=== PATIENT | female | born 1990 | race African-American/Black ===

== ENCOUNTER 2021-09-17 14:22 | Inpatient (IN) ==
[2021-09-17] MEDS ORDERED: miSOPROStoL 200 MCG TABLET RECTAL PRN (15:07)
[2021-09-17] MEDS ORDERED: METHYLERGONOVINE 0.2 MG/1 ML AMP IM PRN (15:07)
[2021-09-17] MEDS ORDERED: TRANEXAMIC ACID 1,000 MG in SODIUM CHLORIDE 0.9% 100 ML IV PRN (15:07)
[2021-09-17] MEDS ORDERED: CARBOPROST TROMETHAMINE 250 MCG/ML AMP IM PRN (15:07)
[2021-09-17] MEDS ORDERED: OXYTOCIN/LR 20 UNIT/1,000 ML BAG IV ONE ×3 (15:07→21:52)
[2021-09-17] MEDS ORDERED: LACTATED RINGERS 1,000 ML IV ONE (15:34)
[2021-09-17 15:35] LABS: Basophils % 0.3 % (0.0-0.8); Eosinophils # 0.1 10*3/uL (0.0-0.87); Eosinophils % 0.8 % (0.00-10.9); Hematocrit 32.4 VOL% (35.7-47.0); Hemoglobin 10.2 GM/DL (12.0-16.0); Immature Granulocytes % 0.4 %; Immature Granulocytes Absolute 0.03 #; Lymphocytes % 25.2 % (21.3-54.2); Mean Corpuscular HGB Conc 31.5 GM/DL (32-36); Mean Corpuscular Volume 79.4 FL (87-102); Mean Platelet Volume 10.1 FL (9.6-12.0); Monocytes % 10.1 % (1.7-12.7); Neutrophils % 63.2 % (38.7-73.9); Platelet Count 257 T/CUMM (130-400); Red Blood Count 4.08 MC/CUMM (3.8-5.5); Red Cell Distribution Width 15.6 % (9.3-17.3); White Blood Count 7.8 T/CUMM (4-12)
[2021-09-17] MEDS: LACTATED RINGERS 1,000 ML IV SCH ×2 (15:36→18:11)
[2021-09-17] MEDS ORDERED: SODIUM CHLORIDE 0.9% 0 ML IV ONE (15:38)
[2021-09-17] MEDS ORDERED: TRANEXAMIC ACID 1,000 MG/10 ML VIAL ONE (15:38)
[2021-09-17] MEDS ORDERED: miSOPROStoL 200 MCG TABLET ONE (15:38)
[2021-09-17] MEDS ORDERED: METHYLERGONOVINE 0.2 MG/1 ML AMP ONE (15:39)
[2021-09-17] MEDS ORDERED: CARBOPROST TROMETHAMINE 250 MCG/ML AMP IM ONE (15:39)
[2021-09-17 15:58] LABS: Alanine Aminotransferase 20 U/L (13-56); Albumin 2.4 G/DL (3.4-5.0); Alkaline Phosphatase 133 U/L (45-117); Aspartate Amino Transferase 14 U/L (0-37); Bilirubin,Total < 0.39 MG/DL (0.20-1.00); Blood Urea Nitrogen 4 MG/DL (7-18); Calcium 8.8 MG/DL (8.5-10.1); Carbon Dioxide 20 MMOL/L (21-32); Estimated Glom Filtration Rate 208 ML/MIN; Glucose 74 MG/DL (74-106); Osmolality,Calculated 270.7 MOS/KG (273-304); Potassium 3.8 MMOL/L (3.5-5.1); Sodium 138 MMOL/L (136-145); Total Protein 6.9 G/DL (6.4-8.2)
[2021-09-17] MEDS ORDERED: ceFAZolin 3,000 MG in SYRINGE 1 EACH IV ONE (16:00)
[2021-09-17] MEDS ORDERED: CITRIC ACID/SODIUM CITRATE 30 ML UDCUP PO ONE (16:00)
[2021-09-17] MEDS ORDERED: FAMOTIDINE 20 MG/2 ML VIAL IV ONE (16:00)
[2021-09-17] MEDS ORDERED: buprenorphine HCL 0.3 MG/ML VIAL ONE (16:06)
[2021-09-17] MEDS ORDERED: ONDANSETRON 4 MG/2 ML VIAL ONE (16:15)
[2021-09-17] MEDS ORDERED: PHENYLEPHRINE 1 MG/10 ML SYRINGE IV ONE ×2 (16:42→16:51)
[2021-09-17 16:54] LABS: Bacteria,Urine Occasional /HPF (Few); Mucus,Urine Occasional /LPF (Occasional); RBC,Urine 2 /HPF (0-4); Squamous Epithelial Cell,Urine Occasional /HPF (0-10)
[2021-09-17 16:55] LABS: Bilirubin,Urine Negative (Negative); Blood, Urine Negative (Negative); Glucose,Urine (UA) Negative (Negative); Ketones,Urine >160 mg/dL (Negative); Nitrite,Urine Positive (Negative); Protein,Urine Negative (Negative); Urine Appearance Clear (Clear); Urine Color Yellow (Yellow); Urine Specific Gravity 1.025 (1.001-1.035)
[2021-09-17 16:56] LABS: Urine Urobilinogen 0.2 eU/dL (<2.0)
[2021-09-17 17:46] LABS: Cord Venous Blood HCO3 22.3 MMOL/L; Cord Venous Blood PCO2 43.2 MMHG; Cord Venous Blood PO2 27.3 MMHG
[2021-09-17] MEDS: ACETAMINOPHEN 500 MG TABLET PO SCH ×2 (17:57→23:59)
[2021-09-17] MEDS: KETOROLAC 30 MG/1 ML VIAL IV SCH ×2 (17:59→23:40)
[2021-09-17] MEDS ORDERED: DIPH/TET/ACEL PERT BOOSTER VACCINE 0.5 ML VIAL IM ONE (21:52)
[2021-09-17] MEDS ORDERED: ONDANSETRON 4 MG/2 ML VIAL IV PRN ×2 (21:52→21:53)
[2021-09-17] MEDS ORDERED: RHO(D) IMMUNE GLOBULIN 300 MCG SYRINGE IM ONE (21:52)
[2021-09-17] MEDS ORDERED: ACETAMINOPHEN 325 MG TABLET PO PRN (21:52)
[2021-09-17] MEDS ORDERED: HYDROCORTISONE 2.5% RECTAL CREAM 30 GM TUBE TOP PRN (21:52)
[2021-09-17] MEDS ORDERED: LANOLIN 50% CREAM 0.3 OZ TUBE TOP PRN (21:52)
[2021-09-17] MEDS ORDERED: BISACODYL 10 MG SUPP RECTAL PRN (21:52)
[2021-09-17] MEDS ORDERED: WITCH HAZEL PADS 100/JAR TOP PRN (21:52)
[2021-09-17] MEDS ORDERED: oxyCODONE/ACETAMINOPHEN 5-325 MG TABLET PO PRN (21:52)
[2021-09-17] MEDS ORDERED: BENZOCAINE 20%/MENTHOL 0.5% SPRAY 56 GM CAN TOP PRN (21:52)
[2021-09-17] MEDS ORDERED: MEASLES/MUMPS/RUBELLA VACCINE 0.5 ML VIAL SUBCUT ONE (21:52)
[2021-09-17] MEDS ORDERED: MEPERIDINE 50 MG/1 ML VIAL IV ONE (21:53)
[2021-09-17] MEDS ORDERED: PANTOPRAZOLE 20 MG TABLET PO SCH (21:54)
[2021-09-17] MEDS: DOCUSATE SODIUM 100 MG CAPSULE PO SCH (22:19)
[2021-09-17] MEDS: ceFAZolin 2,000 MG/50 ML DUPLEX IV SCH (23:43)
[2021-09-18] MEDS ORDERED: MAGNESIUM HYDROXIDE SUSP 30 ML UDCUP PO PRN (00:27)
[2021-09-18] MEDS: LACTATED RINGERS 1,000 ML IV SCH (01:58)
[2021-09-18] MEDS: ACETAMINOPHEN 500 MG TABLET PO SCH ×2 (05:06→11:41)
[2021-09-18] MEDS: oxyCODONE/ACETAMINOPHEN 5-325 MG TABLET PO PRN ×2 (05:07→18:42)
[2021-09-18] MEDS: KETOROLAC 30 MG/1 ML VIAL IV SCH ×2 (05:12→11:37)
[2021-09-18 06:09] LABS: Basophils % 0.3 % (0.0-0.8); Eosinophils # 0.1 10*3/uL (0.0-0.87); Hematocrit 29.1 VOL% (35.7-47.0); Hemoglobin 9.3 GM/DL (12.0-16.0); Immature Granulocytes % 0.7 %; Immature Granulocytes Absolute 0.06 #; Lymphocytes # 1.5 10*3/uL (1.4-4.0); Lymphocytes % 16.3 % (21.3-54.2); Mean Corpuscular Volume 79.5 FL (87-102); Mean Platelet Volume 10.3 FL (9.6-12.0); Monocytes % 8.8 % (1.7-12.7); Neutrophils % 72.9 % (38.7-73.9); Platelet Count 219 T/CUMM (130-400); Red Blood Count 3.66 MC/CUMM (3.8-5.5); Red Cell Distribution Width 15.5 % (9.3-17.3)
[2021-09-18] MEDS: DOCUSATE SODIUM 100 MG CAPSULE PO SCH ×3 (07:59→22:23)
[2021-09-18] MEDS: SIMETHICONE CHEW 80 MG TABLET PO PRN (07:59)
[2021-09-18] MEDS: ceFAZolin 2,000 MG/50 ML DUPLEX IV SCH (08:05)
[2021-09-18] MEDS ORDERED: PANTOPRAZOLE 40 MG TABLET PO ONE (08:49)
[2021-09-18] MEDS: PANTOPRAZOLE 20 MG TABLET PO SCH (09:10)
[2021-09-18] MEDS ORDERED: BISACODYL 5 MG TABLET PO PRN (11:42)
[2021-09-18] MEDS: IBUPROFEN 800 MG TABLET PO PRN (22:23)
[2021-09-19] MEDS: oxyCODONE/ACETAMINOPHEN 5-325 MG TABLET PO PRN ×2 (00:21→06:50)
[2021-09-19] MEDS: IBUPROFEN 800 MG TABLET PO PRN (04:07)
[2021-09-19 07:32] VITALS: BP 114/57
[2021-09-19] MEDS ORDERED: DIPH/TET/ACEL PERT BOOSTER VACCINE 0.5 ML VIAL IM ONE (10:03)
[2021-09-19] MEDS: DOCUSATE SODIUM 100 MG CAPSULE PO SCH (10:38)
[2021-09-19] MEDS: SIMETHICONE CHEW 80 MG TABLET PO PRN (10:38)
[2021-09-19] MEDS: PANTOPRAZOLE 20 MG TABLET PO SCH (10:38)
== END 2021-09-19 12:15 | disposition home or self-care (01) | DRG 788 ==
LOC: N.LDOUT 14:22 → N.LD 14:26 → N.OB 21:40
PROVIDERS: ADMIT Specialist; ATTEND Specialist
PROC: LDCSECT (ICD-10-PCS; 2021-09-17 16:30)

== ENCOUNTER 2021-09-26 13:12 | Inpatient (IN) ==
[2021-09-26] MEDS ORDERED: PROCHLORPERAZINE 10 MG/2 ML VIAL IV ONE (13:43)
[2021-09-26 13:52] LABS: Basophils % 0.8 % (0.0-0.8); Eosinophils # 0.3 10*3/uL (0.0-0.87); Hemoglobin 9.9 GM/DL (12.0-16.0); Immature Granulocytes Absolute 0.05 #; Lymphocytes # 1.7 10*3/uL (1.4-4.0); Mean Corpuscular HGB Conc 30.9 GM/DL (32-36); Mean Corpuscular Volume 81.2 FL (87-102); Mean Platelet Volume 9.2 FL (9.6-12.0); Monocytes # 0.5 10*3/uL (0.11-0.8); Monocytes % 8.7 % (1.7-12.7); Neutrophils % 52.5 % (38.7-73.9); Platelet Count 369 T/CUMM (130-400); Red Blood Count 3.94 MC/CUMM (3.8-5.5); Red Cell Distribution Width 15.4 % (9.3-17.3); White Blood Count 5.2 T/CUMM (4-12)
[2021-09-26 14:07] LABS: Mucus,Urine Occasional /LPF (Occasional); RBC,Urine <1 /HPF (0-4); Squamous Epithelial Cell,Urine Occasional /HPF (0-10)
[2021-09-26 14:08] LABS: Glucose,Urine (UA) Negative (Negative); Ketones,Urine Negative (Negative); Protein,Urine Negative (Negative); Urine Appearance Clear (Clear); Urine Color Yellow (Yellow); Urine Specific Gravity 1.015 (1.001-1.035)
[2021-09-26 14:09] LABS: Bilirubin,Urine Negative (Negative); Blood, Urine Moderate mg/dL (Negative); Nitrite,Urine Negative (Negative); Urine Urobilinogen 0.2 eU/dL (<2.0)
[2021-09-26 14:23] LABS: Alanine Aminotransferase 25 U/L (13-56); Albumin 2.7 G/DL (3.4-5.0); Alkaline Phosphatase 102 U/L (45-117); Aspartate Amino Transferase 13 U/L (0-37); Bilirubin,Total < 0.39 MG/DL (0.20-1.00); Blood Urea Nitrogen 8 MG/DL (7-18); Calcium 8.5 MG/DL (8.5-10.1); Carbon Dioxide 25 MMOL/L (21-32); Chloride 111 MMOL/L (98-107); Estimated Glom Filtration Rate 184 ML/MIN; Glucose 89 MG/DL (74-106); Potassium 4.1 MMOL/L (3.5-5.1); Sodium 143 MMOL/L (136-145); Total Protein 6.5 G/DL (6.4-8.2)
[2021-09-26] MEDS ORDERED: FUROSEMIDE 40 MG/4 ML VIAL IV STA ×2 (14:37→14:55)
[2021-09-26] MEDS ORDERED: LABETALOL 20 MG/4 ML SYRINGE IV STA (14:37)
[2021-09-26 14:38] LABS: Anisocytosis Slight; Hypochromia 1+; Microcytosis Slight
[2021-09-26 14:39] LABS: Platelet Estimate Adequate
[2021-09-26] MEDS ORDERED: oxyCODONE/ACETAMINOPHEN 5-325 MG TABLET PO PRN (15:02)
[2021-09-26] MEDS ORDERED: ONDANSETRON 4 MG/2 ML VIAL IV PRN (15:02)
[2021-09-26] MEDS ORDERED: LACTATED RINGERS 500 ML IV PRN (15:02)
[2021-09-26] MEDS ORDERED: MAGNESIUM SULF RIDER 4 GM/100 ML PREMIX IV ONE (17:51)
[2021-09-26 18:25] LABS: Basophils % 0.6 % (0.0-0.8); Eosinophils # 0.3 10*3/uL (0.0-0.87); Eosinophils % 5.2 % (0.00-10.9); Hematocrit 31.9 VOL% (35.7-47.0); Hemoglobin 9.9 GM/DL (12.0-16.0); Immature Granulocytes % 0.6 %; Immature Granulocytes Absolute 0.03 #; Lymphocytes # 1.7 10*3/uL (1.4-4.0); Lymphocytes % 34.1 % (21.3-54.2); Mean Corpuscular Volume 80.8 FL (87-102); Mean Platelet Volume 9.4 FL (9.6-12.0); Monocytes # 0.5 10*3/uL (0.11-0.8); Neutrophils % 49.5 % (38.7-73.9); Platelet Count 390 T/CUMM (130-400); Red Blood Count 3.95 MC/CUMM (3.8-5.5); Red Cell Distribution Width 15.6 % (9.3-17.3)
[2021-09-26 18:36] LABS: PT Patient Result 11.4 SECS (10.5-12.0); Partial Thromboplastin Time 28.2 SECS (23.8-32.1)
[2021-09-26] MEDS: LACTATED RINGERS 1,000 ML IV SCH (18:40)
[2021-09-26] MEDS: MAGNESIUM SULF DRIP 40 GM/1,000 ML ML IV SCH (18:42)
[2021-09-26 18:44] LABS: Alanine Aminotransferase 22 U/L (13-56); Albumin 2.9 G/DL (3.4-5.0); Alkaline Phosphatase 100 U/L (45-117); Aspartate Amino Transferase 14 U/L (0-37); Bilirubin,Total < 0.39 MG/DL (0.20-1.00); Blood Urea Nitrogen 10 MG/DL (7-18); Calcium 8.9 MG/DL (8.5-10.1); Carbon Dioxide 28 MMOL/L (21-32); Chloride 106 MMOL/L (98-107); Estimated Glom Filtration Rate 156 ML/MIN; Glucose 86 MG/DL (74-106); Osmolality,Calculated 274.5 MOS/KG (273-304); Potassium 3.6 MMOL/L (3.5-5.1); Sodium 139 MMOL/L (136-145); Total Protein 7.2 G/DL (6.4-8.2)
[2021-09-26 19:16] LABS: Bilirubin,Urine Negative (Negative); Blood, Urine Moderate mg/dL (Negative); Glucose,Urine (UA) Negative (Negative); Ketones,Urine Negative (Negative); Nitrite,Urine Negative (Negative); Protein,Urine Negative (Negative); RBC,Urine <1 /HPF (0-4); Squamous Epithelial Cell,Urine Occasional /HPF (0-10); Urine Appearance Clear (Clear); Urine Color Yellow (Yellow); Urine Urobilinogen 0.2 eU/dL (<2.0); Urine pH 6.5 (4.5-8.0)
[2021-09-26 19:19] LABS: Protein/Creatinine Ratio,Urine 0.3 RATIO
[2021-09-26] MEDS ORDERED: LABETALOL 100 MG TABLET PO SCH (21:00)
[2021-09-27 02:56] LABS: Alanine Aminotransferase 20 U/L (13-56); Albumin 2.8 G/DL (3.4-5.0); Alkaline Phosphatase 98 U/L (45-117); Aspartate Amino Transferase 13 U/L (0-37); Bilirubin,Total < 0.39 MG/DL (0.20-1.00); Blood Urea Nitrogen 8 MG/DL (7-18); Calcium 8.6 MG/DL (8.5-10.1); Carbon Dioxide 25 MMOL/L (21-32); Chloride 106 MMOL/L (98-107); Estimated Glom Filtration Rate 156 ML/MIN; Glucose 99 MG/DL (74-106); Osmolality,Calculated 274.5 MOS/KG (273-304); Potassium 3.2 MMOL/L (3.5-5.1); Sodium 139 MMOL/L (136-145); Total Protein 6.9 G/DL (6.4-8.2)
[2021-09-27 02:56] LABS: Bilirubin,Direct < 0.100 MG/DL (0.0-0.20); Uric Acid 4.8 MG/DL (2.6-6.0)
[2021-09-27 03:53] LABS: PT Patient Result 10.9 SECS (10.5-12.0)
[2021-09-27 03:54] LABS: Partial Thromboplastin Time 30.2 SECS (23.8-32.1)
[2021-09-27 04:06] LABS: Basophils % 0.6 % (0.0-0.8); Eosinophils # 0.3 10*3/uL (0.0-0.87); Eosinophils % 4.4 % (0.00-10.9); Hematocrit 31.1 VOL% (35.7-47.0); Hemoglobin 9.9 GM/DL (12.0-16.0); Immature Granulocytes % 0.7 %; Immature Granulocytes Absolute 0.05 #; Lymphocytes # 2.1 10*3/uL (1.4-4.0); Lymphocytes % 30.4 % (21.3-54.2); Mean Corpuscular HGB Conc 31.8 GM/DL (32-36); Mean Corpuscular Volume 79.5 FL (87-102); Mean Platelet Volume 9.4 FL (9.6-12.0); Monocytes # 0.7 10*3/uL (0.11-0.8); Monocytes % 10.8 % (1.7-12.7); Neutrophils % 53.1 % (38.7-73.9); Platelet Count 376 T/CUMM (130-400); Red Blood Count 3.91 MC/CUMM (3.8-5.5); Red Cell Distribution Width 15.7 % (9.3-17.3); White Blood Count 6.9 T/CUMM (4-12)
[2021-09-27] MEDS: POTASSIUM CHLORIDE 20 MEQ TABLET PO PRN ×4 (04:56→11:11)
[2021-09-27] MEDS: ACETAMINOPHEN 325 MG TABLET PO PRN ×2 (07:01→13:04)
[2021-09-27] MEDS: LACTATED RINGERS 1,000 ML IV SCH (10:43)
[2021-09-27 11:30] LABS: Basophils % 0.7 % (0.0-0.8); Eosinophils # 0.3 10*3/uL (0.0-0.87); Eosinophils % 4.9 % (0.00-10.9); Hematocrit 33.5 VOL% (35.7-47.0); Hemoglobin 10.3 GM/DL (12.0-16.0); Immature Granulocytes % 0.4 %; Immature Granulocytes Absolute 0.02 #; Lymphocytes # 1.4 10*3/uL (1.4-4.0); Lymphocytes % 25.4 % (21.3-54.2); Mean Corpuscular HGB Conc 30.7 GM/DL (32-36); Mean Corpuscular Volume 80.9 FL (87-102); Mean Platelet Volume 9.1 FL (9.6-12.0); Monocytes # 0.4 10*3/uL (0.11-0.8); Monocytes % 7.8 % (1.7-12.7); Neutrophils % 60.8 % (38.7-73.9); Platelet Count 398 T/CUMM (130-400); Red Blood Count 4.14 MC/CUMM (3.8-5.5); Red Cell Distribution Width 15.8 % (9.3-17.3); White Blood Count 5.5 T/CUMM (4-12)
[2021-09-27 11:41] LABS: PT Patient Result 10.9 SECS (10.5-12.0)
[2021-09-27 11:51] LABS: Alanine Aminotransferase 22 U/L (13-56); Albumin 2.8 G/DL (3.4-5.0); Alkaline Phosphatase 104 U/L (45-117); Aspartate Amino Transferase 11 U/L (0-37); Bilirubin,Direct < 0.100 MG/DL (0.0-0.20); Bilirubin,Total < 0.39 MG/DL (0.20-1.00); Blood Urea Nitrogen 6 MG/DL (7-18); Calcium 8.4 MG/DL (8.5-10.1); Carbon Dioxide 28 MMOL/L (21-32); Chloride 106 MMOL/L (98-107); Estimated Glom Filtration Rate 181 ML/MIN; Glucose 98 MG/DL (74-106); Osmolality,Calculated 274.5 MOS/KG (273-304); Potassium 4.2 MMOL/L (3.5-5.1); Sodium 139 MMOL/L (136-145); Total Protein 7.1 G/DL (6.4-8.2); Uric Acid 4.5 MG/DL (2.6-6.0)
[2021-09-27] MEDS: MAGNESIUM SULF DRIP 40 GM/1,000 ML ML IV SCH (15:10)
[2021-09-27 17:00] LABS: Basophils % 0.6 % (0.0-0.8); Eosinophils # 0.2 10*3/uL (0.0-0.87); Eosinophils % 5.1 % (0.00-10.9); Hematocrit 33.8 VOL% (35.7-47.0); Hemoglobin 10.6 GM/DL (12.0-16.0); Immature Granulocytes % 0.2 %; Immature Granulocytes Absolute 0.01 #; Lymphocytes # 1.5 10*3/uL (1.4-4.0); Lymphocytes % 32.1 % (21.3-54.2); Mean Corpuscular HGB Conc 31.4 GM/DL (32-36); Mean Corpuscular Volume 79.2 FL (87-102); Mean Platelet Volume 9.6 FL (9.6-12.0); Monocytes # 0.4 10*3/uL (0.11-0.8); Platelet Count 426 T/CUMM (130-400); Red Blood Count 4.27 MC/CUMM (3.8-5.5); Red Cell Distribution Width 15.9 % (9.3-17.3); White Blood Count 4.7 T/CUMM (4-12)
[2021-09-27 17:13] LABS: PT Patient Result 10.9 SECS (10.5-12.0)
[2021-09-27 17:23] LABS: Alanine Aminotransferase 21 U/L (13-56); Albumin 2.9 G/DL (3.4-5.0); Alkaline Phosphatase 107 U/L (45-117); Aspartate Amino Transferase 12 U/L (0-37); Bilirubin,Direct < 0.100 MG/DL (0.0-0.20); Bilirubin,Total < 0.39 MG/DL (0.20-1.00); Blood Urea Nitrogen 6 MG/DL (7-18); Calcium 7.7 MG/DL (8.5-10.1); Carbon Dioxide 27 MMOL/L (21-32); Chloride 106 MMOL/L (98-107); Estimated Glom Filtration Rate 181 ML/MIN; Glucose 81 MG/DL (74-106); Osmolality,Calculated 273.5 MOS/KG (273-304); Sodium 139 MMOL/L (136-145); Total Protein 7.2 G/DL (6.4-8.2); Uric Acid 4.6 MG/DL (2.6-6.0)
[2021-09-28] MEDS: ACETAMINOPHEN 325 MG TABLET PO PRN (06:02)
[2021-09-28] MEDS ORDERED: IBUPROFEN 800 MG TABLET PO ONE (14:30)
[2021-09-28 16:12] VITALS: BP 138/75
== END 2021-09-28 18:50 | disposition home or self-care (01) | DRG 776 ==
LOC: N.ED 13:12 → N.EDINP 15:02 → N.LD 17:29 → N.OB 09-27 20:45
PROVIDERS: ADMIT Obstetrics & Gynecology; ATTEND Obstetrics & Gynecology